=== PATIENT | male | born 1990 | race Caucasian/White ===

== ENCOUNTER 2019-07-13 01:56 | Emergency (ER) | payer OTHER ==
[~2019-07-13] VITALS: Ht 170.2 cm; Wt 60.3 kg
[2019-07-13 02:02] VITALS: Ht 170.2 cm; Wt 60.3 kg
[2019-07-13 05:16] VITALS: BP 127/88
== END 2019-07-13 05:16 | disposition home or self-care (01) ==
LOC: ED 01:56
DX: Z11.3 Encounter for screening for infections with a predominantly sexual mode of transmission (principal)
CPT/HCPCS: 87491; 87591